=== PATIENT | female | born 1995 | race Caucasian/White ===

== ENCOUNTER 2019-01-31 16:26 | Emergency (ER) | payer OTHER ==
[~2019-01-31] VITALS: Ht 152.4 cm; Wt 99.8 kg
[2019-01-31 16:31] VITALS: BP 104/92
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
[2019-01-31] MEDS ORDERED: KETOROLAC 60 MG/2 ML VIAL IM ONE (17:05)
[2019-01-31 17:56] VITALS: BP 116/89
== END 2019-01-31 17:56 | disposition home or self-care (01) ==
LOC: MED 16:26
DX: S20.219A Contusion of unspecified front wall of thorax, initial encounter (principal); S30.1XXA Contusion of abdominal wall, initial encounter; M79.645 Pain in left finger(s); V49.49XA Driver injured in collision with other motor vehicles in traffic accident, initial encounter; W22.12XA Striking against or struck by front passenger side automobile airbag, initial encounter; Y93.89 Activity, other specified; Y92.488 Other paved roadways as the place of occurrence of the external cause; Y99.8 Other external cause status
CPT/HCPCS: 71250; 74176; 81025; 96372; 99284; J1885